=== PATIENT | male | born 1950 | race Caucasian/White ===

== ENCOUNTER 2018-12-14 12:53 | Emergency (ER) | payer MEDICARE, BC ==
[2018-12-14 13:16] VITALS: BP 144/90
[2018-12-14] MEDS ORDERED: HYDROmorphone 1 MG/ML Syringe IM ONE (13:38)
[2018-12-14] MEDS ORDERED: methylPREDNISolone Sodium Succinate 125 MG/2 ML SDV IM ONE (13:39)
--- NOTE | 2018-12-14 14:00 | EDM.PDOC ---
ED HPI GENERAL MEDICAL PROBLEM - General Chief Complaint: Back Pain or Injury Stated Complaint: BACK PROBLEMS 2+ WEEKS Time Seen by Provider: 12/14/18 13:14 Source of Information: Reports: Patient, RN Notes Reviewed - History of Present Illness INITIAL COMMENTS - FREE TEXT/NARRATIVE: 68 year old male comes in with severe L low back pain radiating to LLE, mostly down to L knee, occasionally down to his foot. Intermitent worsening numbness down anterior thigh. Thinks he injured back about 3 wks ago shoveling snow. He can find positions of comfort, pain numbness much worse standing, walking and moving when in bed. Has been on prednisone and flexeril. Now on 4 th day of medrol dose pack. Was better 5 days ago and now much worse, difficult to sleep, extremely hard to walk. Left Leg Pain Score (Numeric/FACES): 0 - Related Data Allergies Allergy/AdvReac Type Severity Reaction Status Date / Time droperidol Allergy Hives Verified 12/14/18 13:07 Home Meds: Home Meds Cyclobenzaprine [Flexeril] 10 mg PO TID PRN #20 tab 01/22/15 [Rx] oxyCODONE HCl/Acetaminophen [Percocet 5-325 mg Tablet] 1 - 2 tab PO Q6H PRN #20 tablet 01/22/15 [Rx] Aspirin [Adult Low Dose Aspirin EC] 81 mg PO DAILY 12/14/18 [History] Losartan/Hydrochlorothiazide [Losartan-HCTZ 100-12.5 MG] 1 tab PO DAILY [History] Methylprednisolone. 12/14/18 [History] Multivitamin [Multivitamins] 1 tab PO DAILY 12/14/18 [History] Past Medical History Cardiovascular History: Reports: Hypertension - Past Surgical History Musculoskeletal Surgical History: Reports: Hip Replacement Social & Family History - Tobacco Use Smoking Status *Q: Unknown Ever Smoked ED ROS GENERAL - Review of Systems Review Of Systems: See Below Constitutional: Denies: Fever, Chills, Diaphoresis HEENT: Reports: No Symptoms Respiratory: Denies: Shortness of Breath Cardiovascular: Denies: Chest Pain GI/Abdominal: Denies: Abdominal Pain, Nausea, Vomiting Musculoskeletal: Reports: Back Pain (L low back), Leg Pain. Denies: Neck Pain Skin: Reports: No Symptoms Neurological: Reports: Numbness (LLE). Denies: Weakness ED EXAM,LOWER BACK PAIN/INJURY - Physical Exam Exam: See Below General Appearance: Alert, Moderate Distress Eye Exam: Bilateral Eye: PERRL Head: Atraumatic. No: Facial Swelling Neck: Supple Respiratory/Chest: No Respiratory Distress, Lungs Clear, Normal Breath Sounds Cardiovascular: Regular Rate, Rhythm Back Exam: No: CVA Tenderness (L), CVA Tenderness (R), Paraspinal Tenderness, Vertebral Tenderness Extremities: No: Leg Pain, Increased Warmth, Redness Neurological: Alert, No Motor/Sensory Deficits Skin Exam: Warm, Dry, Normal Color, No Rash Course - Vital Signs Last Recorded V/S: Last Vital Signs Temp 97.7 F 12/14/18 13:11 Pulse 81 12/14/18 13:11 Resp 16 12/14/18 13:11 BP 144/90 H 12/14/18 13:11 Pulse Ox 96 12/14/18 13:11 - Orders/Labs/Meds Meds: Medications Discontinued Medications Generic Name Dose Route Start Last Admin Trade Name Triny PRN Reason Stop Dose Admin Hydromorphone HCl 1 mg 12/14/18 13:38 12/14/18 13:53 Dilaudid IM 12/14/18 13:39 1 mg ONETIME ONE Administration Methylprednisolone Sodium Succinate 125 mg 12/14/18 13:39 12/14/18 13:53 Solu-Medrol IM 12/14/18 13:40 125 mg ONETIME ONE Administration - Re-Assessments/Exams Free Text/Narrative Re-Assessment/Exam: 12/14/18 14:38 has had good relief of pain after dilaudid 1 mg IM, have also give solumedrol 125 mg IM, discharge instr. as documented. Order written for MRI. Departure - Departure Time of Disposition: 14:00 Disposition: Home, Self-Care 01 Condition: Fair Clinical Impression: Sciatica Qualifiers: Laterality: left Qualified Code(s): M54.32 - Sciatica, left side - Discharge Information Instructions: Sciatica Referrals: Adrian Murray Jr, MD [Primary Care Provider] - Forms: ED Department Discharge Additional Instructions: rest back, no heavy lifting, alternate heat and ice to low back as needed, prednisone 40 mg daily for 3 days starting tomorrow morning, than 20 mg q AM for the next 2 days. Hydrocodone 1/2 tablet with one 500 mg tylenol q 6 hours for severe pain as needed, You may take advil or motrin 600 mg (3 tabs) in between doses for extra pain and anti inflamatory relief. Do not take more than 3000 mg tylenol per 24 hour. Start OTC pepcid (famotidine) 20 mg twice daily when taking all of these meds to help protect your stomach. MRI of your low back order has been sent to Radiology, they will call you tomorrow morning to give you a time to get that done. Continue PT. Follow up with Dr Murray about 1 day after MRI for results. Return to ED as needed.
== END 2018-12-14 14:40 | disposition home or self-care (01) ==
LOC: JD.ED 12:53
DX: M54.42 Lumbago with sciatica, left side (principal); I10 Essential (primary) hypertension; Z88.8 Allergy status to other drugs, medicaments and biological substances; Z79.899 Other long term (current) drug therapy
CPT/HCPCS: 96372; 99283; J1170; J2930